=== PATIENT | male | born 1940 | race Caucasian/White ===

== ENCOUNTER 2016-08-06 12:52 | Day surgery (SDC) | payer MEDICARE ==
[~2016-08-06] VITALS: Ht 182.9 cm; Wt 75.3 kg
[~2016-08-06 12:52] MED LIST: ASPI81TA3 PO; ATEN25TA PO; DIT5 PO; FOL1 PO; LEVO25TA41 PO; OMEP40CA36 PO; VAS10 PO; WEL75 PO; ZOC10 PO; fentaNYL-PF 50 mCg/mL 2 mL Inj IVPUSH PRN
[2016-08-06 14:12] VITALS: BP 135/80; PULSE 55; RESP 17; O2SAT 100
[2016-08-06 15:16] VITALS: BP 129/70; PULSE 60; RESP 16; O2SAT 100
[2016-08-06 15:48] VITALS: BP 132/74; PULSE 65; RESP 12; O2SAT 100
--- NOTE | 2016-08-06 23:22 | ENDO ---
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 PROCEDURE PERFORMED: Upper endoscopy with biopsies. SURGEON: Vielka Nash MD. INSTRUMENT: Olympus GIF-H180 J. MEDICATIONS: 1. Versed 6 mg. 2. Fentanyl 100. HISTORY OF PRESENT ILLNESS: This is a 75-year-old man who four years ago underwent upper endoscopy and colonoscopy. 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 Therefore, he presented for surveillance. FINDINGS: 1. Tiny ulcer in the fundus of the stomach, biopsied. 2. Small benign-appearing polyps in the stomach, one was biopsied. 3. 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 Olympia classification C2-M3. The GE junction was at 43 cm, the Camarena's esophagus extended circumferentially to 41 cm and maximally with tongues up to 40 cm. Four quadrant biopsies were obtained at 43, 41, 40, and 39 cm. DESCRIPTION OF PROCEDURE: The patient was brought to the procedural suite and placed in left lateral decubitus position. Moderate sedation was induced. A bite block was placed. The endoscope was advanced. The endoscopy proceeded to the third portion of the duodenum. The duodenum was normal. The pylorus and antrum were normal. There were small benign-appearing polyps in the body of the stomach, one was biopsied. Retroflexed examination of the GE junction revealed a Hill grade II flap valve. There was a small ulcer in the fundus of the stomach which was biopsied. It was not associated with a mass and appeared benign. The endoscope was withdrawn. Measurements were taken at the GE junction of the diaphragmatic hiatus and Camarena's esophagus as noted above. Four quadrant biopsies were obtained at levels 43 cm, 41 cm, 40 cm, and 39 cm. The endoscope was then withdrawn. The esophagus appeared otherwise normal. The patient tolerated the procedure well. ESTIMATED BLOOD LOSS: 2 mL. COMPLICATIONS: None. SPECIMENS: 1. Ulcer of the fundus. 2. Polyp of the fundus. 3. Four quadrant biopsies at 43 cm. 4. Four quadrant biopsies at 41 cm. 5. Four quadrant biopsies at 40 cm. 6. Four quadrant biopsies at 39 cm.
--- NOTE | 2016-08-12 15:04 | PATH ---
SURGICAL PATHOLOGY Attending Physician:Vielka Nash MD CASE STATUS: Signed Out PATIENT NAME: REDD LARSON PID: [id number] : 1940 DATE COLLECTED:08/06/2016 00:00 SPECIMEN: 1: Gastric, Biopsy 2: Stomach, Polyp, Biopsy 3: Esophagus, Biopsy 4: Esophagus, Biopsy 5: Esophagus, Biopsy 6: Esophagus, Biopsy CLINICAL HISTORY: 1). ULCER OF FUNDUS BIOPSY 2). FUNDUS POLYPS BIOPSY 3). BIOPSY @ 43 CM 4). BIOPSY @ 41 CM 5). 40 CM BIOPSY 6). 39 CM BIOPSY FINAL DIAGNOSIS: 1.DESIGNATED "ULCER OF FUNDUS, BIOPSY": BODY-TYPE MUCOSA WITH A FEW DILATED GLANDS, FAVOR FUNDIC GLAND POLYP. Negative for Helicobacter organisms. Negative for intestinal metaplasia. Negative for dysplasia and malignancy. 2.STOMACH, FUNDUS POLYP, BIOPSY: BODY-TYPE MUCOSA WITH A FEW DILATED GLANDS CONSISTENT WITH FUNDIC GLAND POLYP AND FOVEOLAR HYPERPLASIA. Negative for Helicobacter organisms. Negative for intestinal metaplasia. Negative for dysplasia and malignancy. 3. 4.ESOPHAGUS, 43 CM, 41 CM, BIOPSIES: CARDIA-TYPE MUCOSA WITH NO DIAGNOSTIC ABNORMALITY. Negative for intestinal metaplasia. Negative for dysplasia and malignancy. 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 Negative for dysplasia and malignancy. 6.ESOPHAGUS, 39 CM, BIOPSIES: SQUAMOUS MUCOSA WITH NO DIAGNOSTIC ABNORMALITY. SCANT COLUMNAR EPITHELIUM WITH REACTIVE EPITHELIAL CHANGES. Negative for intestinal metaplasia by Alcian blue stain. Intraepithelial eosinophils are not increased. Negative for dysplasia and malignancy. ICD10 code K22.70 GROSS DESCRIPTION: The specimen is received in six formalin filled containers labeled with the patient's name. 1). The specimen is sublabeled "ulcer of fundus" and consists of a 0.2 x 0.2 x 0.2 CM portion of tissue which is entirely submitted in cassette 1A. 2). The specimen is sublabeled "fundus polyp" and consists of a 0.3 x 0.3 x 0.3 CM portion of tissue which is entirely submitted in cassettes tissue A. 3). The specimen is sublabeled "BX at 43 CM" and consists of multiple portions of tissue which aggregate to 0.4 x 0.3 x 0.2 CM. The specimen is entirely submitted in cassette 3A. 4). The specimen is sublabeled "BX at 41 CM" and consists of 4 portions of tissue which aggregate to 0.3 x 0.3 x 0.2 CM. The specimen is entirely submitted in cassettes 4A. 5). The specimen is sublabeled "40 CM" and consists of 4 portions of tissue which aggregate to 0.3 x 0.3 x 0.3 CM. The specimen is entirely submitted in cassette 5A. 6). The specimen is sublabeled "39 CM and consists of 4 portions of tissue which aggregate to 0.4 x 0.3 x 0.2 CM. The specimen is entirely submitted in cassette 6A. 08/07/2016 DAC MICRO DESCRIPTION: 6. An Alcian blue stain was performed to evaluate for intestinal metaplasia and is negative. A control stain showed appropriate reactivity. As part of a routine lead quality technician, Dr. Suresh Florez has also reviewed part 6 of this case and agrees with the diagnosis. Additional deeper levels were examined. This test was developed and its performance characteristics determined by [facility]. It has not been cleared or approved by the [place]. Food and Drug Administration. The FDA has determined that such clearance or approval is not necessary. This test is used for clinical purposes. It should not be regarded as investigational or for research. ICD-9 CODES: CPT CODES: 1: 37043 2: 63067 3: 77660 4: 60761 5: 82087 6: 28406, 96013 Electronically Signed Out Nilda Culver MD [facility] [address], [place] [address] Technical component performed at [facility], [facility] [address], [place], [address]
== END 2016-08-06 23:59 | disposition home or self-care (01) ==
LOC: END 12:52
PROVIDERS: ATTEND Surgery
DX: K22.70 Barrett's esophagus without dysplasia (principal); K31.7 Polyp of stomach and duodenum; K25.9 Gastric ulcer, unspecified as acute or chronic, without hemorrhage or perforation; I12.9 Hypertensive chronic kidney disease with stage 1 through stage 4 chronic kidney disease, or unspecified chronic kidney disease; N18.9 Chronic kidney disease, unspecified; K21.9 Gastro-esophageal reflux disease without esophagitis; E03.9 Hypothyroidism, unspecified
CPT/HCPCS: 43239; 88305; 88313; 99153; G0500; J2250; J3010; J7030